=== PATIENT | male | born 1980 | race Caucasian/White ===

== ENCOUNTER 2018-07-18 02:05 | Emergency (ER) | payer SELFPAY ==
[~2018-07-18] VITALS: Ht 182.9 cm; Wt 95.7 kg
[2018-07-18 02:09] VITALS: Ht 182.9 cm; Wt 95.7 kg
[2018-07-18 03:13] VITALS: BP 151/95
== END 2018-07-18 03:13 | disposition left against medical advice (07) ==
LOC: ED 02:05
DX: F41.9 Anxiety disorder, unspecified (principal)
CPT/HCPCS: 84439; G0480

== ENCOUNTER 2018-09-09 08:31 | Emergency (ER) | payer OTHER ==
[~2018-09-09] VITALS: Ht 182.9 cm; Wt 89.8 kg
[2018-09-09 08:48] VITALS: Ht 182.9 cm; Wt 89.8 kg
[2018-09-09 09:36] LABS: microscopic required? NO
[2018-09-09 09:46] LABS: urine erythrocyte NEGATIVE (NEGATIVE)
[2018-09-09 09:54] LABS: BASOPHIL % 0.6 % (0-2); PLATELET COUNT 215 x10^3mcL (130-400); RED CELL DISTRIBUTION WIDTH 12.7 % (11.5-14.5)
[2018-09-09 10:07] LABS: CALCIUM 8.9 mg/dL (8.5-10.1); CARBON DIOXIDE 27.9 mmol/L (21-32); CHLORIDE SERUM 103 mmol/L (98-107); GFR1 > 60 mL/min; GLUCOSE SERUM 96 mg/dL (74-106); POTASSIUM SERUM 4.3 mmol/L (3.5-5.1); SODIUM SERUM 136 mmol/L (136-145)
[2018-09-09 10:12] LABS: ALBUMIN 3.8 g/dL (3.4-5.0); ALKALINE PHOSPHATASE 67 U/L (46-116); ALT/SGPT 40 U/L (16-63); AST/SGOT 27 U/L (15-37); BILIRUBIN TOTAL 0.6 mg/dL (0.20-1.00); LIPASE 175 IU/L (73-393); TOTAL PROTEIN, SERUM 6.9 g/dL (6.4-8.2)
[2018-09-09 11:15] VITALS: BP 128/73
== END 2018-09-09 11:18 | disposition home or self-care (01) ==
LOC: ED 08:31
PROVIDERS: Emergency Medicine
DX: K52.9 Noninfective gastroenteritis and colitis, unspecified (principal)
CPT/HCPCS: J7030